=== PATIENT | female | born 2000 | race Caucasian/White ===

== ENCOUNTER 2019-02-06 01:04 | Emergency (ER) | payer BC, SELFPAY ==
[2019-02-06 01:05] VITALS: BP 112/69; PULSE 103; RESP 18; TEMP 36; O2SAT 100; BMI 21.1
--- NOTE | 2019-02-06 01:06 | ED.DCSUM_ITS ---
History of Present Illness Chief Complaint: ETOH Intox Informant: Patient, Software Configuration Analyst Limited by: Intoxicated Onset: Today Context: Gradual Onset Timing: Continuous Current Severity: Moderate Maximum Severity: Severe Narrative: The patient presents to the emergency department by squad from the [facility]. The patient is a college student. She apparently was drinking tonight. She was more listless at the [facility] and was sent in for evaluation. She will answer questions appropriately, but does not know what she drank. She denies any drug use. She denies any suicidal or homicidal thoughts. She states she is otherwise healthy. Prior similar symptoms: No Recent Illness/Hospitalization: No Past Medical History - Allergies and Home Meds Allergies/Adverse Reactions: Allergies No Known Allergies Allergy (Verified 02/06/19 01:12) Primary Care Physician: NOT,DEFINED [NON-STAFF] - Prior records reviewed: Yes Past Medical History: None Lives: With Family, Friends Alcohol: Occasional Drugs: None Review of Systems ROS: Unable to Obtain Physical Exam Inital Vital Signs reviewed: Yes General: Well nourished, Well developed, Unkempt, No Acute Distress Head: Normocephalic, Atraumatic Eyes: Perrl, EOMI ENT: Moist mucous membranes, No rhinorrhea Neck: Supple, Nontender Cardiovascular: Regular rate, Regular rhythm, No murmurs Respiratory: No distress, CTA bilaterally, Chest nontender Abdomen: Soft, Nontender, Nondistended, Normal bowel sounds Back: Nontender, Normal Inspection Extremities: Nontender, No edema Skin: Normal color, No rash Neurological: Cranial nerves II-XII grossly intact, Normal Strength, Normal Sensation, Disoriented Psychological: Normal affect, Normal Mood Diagnostic/Tx/Re-eval Abnormal Lab Results 02/06/19 02/06/19 02/06/19 01:10 01:10 01:10 WBC 15.4 H RBC 4.12 L Hgb 12.9 Hct 37.4 MCV 90.8 MCH 31.3 MCHC 34.5 RDW Std Deviation 40.9 RDW Coeff of Valentin 12.4 Plt Count 259 MPV 11.6 Immature Gran % (Auto) 0.200 Neut % (Auto) 49.4 Lymph % (Auto) 40.1 Rolette % (Auto) 7.8 Eos % (Auto) 1.9 Baso % (Auto) 0.6 Absolute Neuts (auto) 7.6 Absolute Lymphs (auto) 6.17 H Nucleated RBC % 0 Differential Comment Sodium 142 Potassium 2.4 L* Chloride 110 H Carbon Dioxide 23.0 Anion Gap 9 BUN 11 Creatinine 0.65 Estim Creat Clear Calc 114.21 Est GFR (MDRD) Af Amer 149 Est GFR (MDRD) Non-Af 123 BUN/Creatinine Ratio 16.9 Glucose 150 H Calcium 8.6 Serum , Qual Ethyl Alcohol 253.0 02/06/19 01:10 WBC RBC Hgb Hct MCV MCH MCHC RDW Std Deviation RDW Coeff of Valentin Plt Count MPV Immature Gran % (Auto) Neut % (Auto) Lymph % (Auto) Rolette % (Auto) Eos % (Auto) Baso % (Auto) Absolute Neuts (auto) Absolute Lymphs (auto) Nucleated RBC % Differential Comment Sodium Potassium Chloride Carbon Dioxide Anion Gap BUN Creatinine Estim Creat Clear Calc Est GFR (MDRD) Af Amer Est GFR (MDRD) Non-Af BUN/Creatinine Ratio Glucose Calcium Serum , Qual NEGATIVE Ethyl Alcohol - Medical Decision Making Patient presents to the emergency department intoxicated. She will answer questions. She is protecting her airway. IV was labs do show hypokalemia. Her blood alcohol level is approximately 250. I discussed care with the patient's father who lives out of town. He is going to come and pick patient up, but has a [address] Plan will be to observe the patient overnight and reevaluate her when she can demonstrate sobriety. I will replace her potassium orally when she is more awake. She will likely be discharged home. Impression 1. Alcohol intoxication 2. Hypokalemia ED Disposition - Plan for ED Patient: Instructions: Alcohol Intoxication, Hypokalemia Prescriptions: Potassium Chloride 20 meq PO BID #[id number] [email or web address] Prescription Printed Referrals: NOT,DEFINED [NON-STAFF] -
[2019-02-06 01:08] VITALS: TEMP 36; O2SAT 86; BMI 24.5
[2019-02-06 01:11] VITALS: O2SAT 100
[2019-02-06] MEDS: 0.9% Normal Saline 1,000 ML 1000 ML IV (01:12)
[2019-02-06 01:21] LABS: Absolute Lymphocyte Count 6.17 X10^3/uL (0.83-4.51); Absolute Neutrophil Count 7.6 X10^3/uL (2.0-7.7); Basophil% 0.6 % (0-1); Eosinophil# 0.29 X10^3/uL; Eosinophils% 1.9 % (0-5); Hematocrit 37.4 % (37-47); Hemoglobin 12.9 g/dL (12.0-15.0); Lymphocyte # 6.17 X10^3/ul (4.0); Lymphocyte % 40.1 % (19-41); Mean Corp Hgb Conc 34.5 g/dL (32-36); Mean Corpuscular Hgb 31.3 pg (27.0-32.0); Mean Corpuscular Volume 90.8 fL (81-99); Mean Platelet Vol. 11.6 fl (6.2-12.0); Monocyte% 7.8 % (0-10); NRBC Flagged by Analyzer 0 % (0-5); Neutrophil % 49.4 % (47-70); POSITIVE DIFFERENTIAL YES; Platelet Count 259 K/mm3 (150-450); RBC Distribution Width CV 12.4 % (11.6-14.6); RBC Distribution Width SD 40.9 fl (35.1-43.9); Red Blood Count 4.12 M/mm3 (4.2-5.4); White Blood Count 15.4 K/mm3 (4.4-11.0)
[2019-02-06 01:45] LABS: Differential Indicated SCAN CRITERIA MET
[2019-02-06 01:47] LABS: Internal QC Validated? YES +Cl - CLEAR BKGD; Pregnancy, Serum, hCG Quali. NEGATIVE Negative
[2019-02-06 01:56] LABS: Anion Gap 9 (5-15); BUN 11 mg/dL (7-18); BUN/Creat Ratio 16.9 RATIO (10-20); Calcium,Total 8.6 mg/dL (8.5-10.1); Chloride 110 mmol/L (98-107); Creatinine, Serum 0.65 mg/dL (0.55-1.02); EST Glomerular Filtration Rate 123 mL/min (>60); Est Glom Filt Rate - Afr Amer 149 mL/min (>60); Estimated Creatinine Clearance 114.21 ml/min; Glucose 150 mg/dL (74-106); Potassium 2.4 mmol/L (3.5-5.1); Sodium Level 142 mmol/L (136-145)
--- NOTE | 2019-02-06 01:56 | ED.RN ---
RECEIVED CRITICAL LAB RESULT OF POTASSIUM 2.6. AWARE.
[2019-02-06 03:12] VITALS: BP 110/75; PULSE 93; RESP 17; O2SAT 100
[2019-02-06 05:49] VITALS: BP 104/57; PULSE 87; RESP 15; O2SAT 99
[2019-02-06 07:22] VITALS: BP 110/68; PULSE 72; RESP 16; O2SAT 98; O2SAT 99
== END 2019-02-06 07:23 | disposition home or self-care (01) ==
LOC: ED 02:28
PROVIDERS: Emergency Provider Emergency Medicine
DX: F10.129 Alcohol abuse with intoxication, unspecified (principal); E87.6 Hypokalemia; Y90.8 Blood alcohol level of 240 mg/100 ml or more
CPT/HCPCS: 80048; 80320; 84703; 85025; 96360; 96361; 99285; J7030; A4216; G0480

== ENCOUNTER → 2021-05-16 08:00 | Outpatient (CLI) | payer BC, SELFPAY | PROVIDERS: Referring Provider Family Medicine; Visit Provider Family Medicine | DX: Z23 Encounter for immunization (principal) ==